=== PATIENT | male | born 1995 | race Hispanic/Latino ===

== ENCOUNTER 2021-02-18 10:28 | Emergency (ER) | payer OTHER ==
[~2021-02-18] VITALS: Ht 180.3 cm; Wt 158.8 kg
[2021-02-18 10:29] VITALS: BP 160/102
== END 2021-02-18 14:00 | disposition home or self-care (01) ==
LOC: EDH 10:28
DX: T16.2XXA Foreign body in left ear, initial encounter (principal); X58.XXXA Exposure to other specified factors, initial encounter; Y93.89 Activity, other specified; Y92.89 Other specified places as the place of occurrence of the external cause; Y99.8 Other external cause status
CPT/HCPCS: 69200

== ENCOUNTER 2021-04-12 05:13 | Emergency (ER) | payer SELFPAY ==
[~2021-04-12] VITALS: Ht 180.3 cm; Wt 171.0 kg
[2021-04-12 06:20] LABS: AMPHET/METH SCREEN,URINE NEGATIVE (NEGATIVE); BARBITURATE SCREEN, URINE NEGATIVE (NEGATIVE); BENZODIAZEPINES SCREEN,URINE NEGATIVE (NEGATIVE); CANNABINOID SCREEN,URINE POSITIVE (NEGATIVE); COCAINE SCREEN,URINE NEGATIVE (NEGATIVE); OPIATE SCREEN,URINE NEGATIVE (NEGATIVE); PHENCYCLIDINE SCREEN,URINE NEGATIVE (NEGATIVE)
[2021-04-12 06:24] LABS: APPEARANCE,URINE Clear (CLEAR); BILIRUBIN,URINE Negative (NEGATIVE); COLOR,URINE Yellow (YELLOW); GLUCOSE, URINE (UA) Negative (NEGATIVE); KETONES,URINE Negative (NEGATIVE); LEUKOCYTE ESTERASE ,URINE Trace (NEGATIVE); NITRATE,URINE Negative (NEGATIVE); OCCULT BLOOD,URINE Negative (NEGATIVE); PROTEIN,URINE Negative (NEGATIVE)
[2021-04-12 07:40] VITALS: BP 149/84
[2021-04-12 07:59] LABS: BASOPHILS % (AUTO) 0.4 % (0.0-5.0); EOSINOPHILS % (AUTO) 2.4 % (0.0-8.0); LYMPHOCYTES % (AUTO) 41.7 % (21.0-51.0); MEAN CORPUSCULAR HEMOGLOBIN 28.1 pg (27.0-33.0); MEAN CORPUSCULAR VOLUME 87.9 fL (79-99); MONOCYTES % (AUTO) 6.1 % (3.0-13.0); NEUTROPHILS % (AUTO) 49.1 % (40.0-77.0); PLATELET COUNT (AUTO) 166 K/uL (130-400); RED BLOOD CELL COUNT(AUTO) 5.12 MIL/uL (4.50-6.20); RED CELL DISTRIBUTION WIDTH 13.1 % (11.0-15.5); WHITE BLOOD COUNT (AUTO) 12.7 K/uL (4.8-10.8)
[2021-04-12 08:03] LABS: BACTERIA,URINE Rare /HPF (None Seen); RBC,URINE 0-1 /HPF (0-1); SQUAMOUS EPITHELIAL CELL,UR Rare /HPF (0-2); WBC,URINE 0-1 /HPF (0-1)
[2021-04-12 08:50] LABS: ALBUMIN 4.1 g/dL (3.5-5.0); BILIRUBIN,TOTAL 0.4 mg/dL (0.2-1.0); POTASSIUM 4.3 mmol/L (3.5-5.1); TOTAL PROTEIN, SERUM 8.3 g/dL (6.0-8.3)
[2021-04-12] MEDS ORDERED: MELO7.5T12 PO (09:16)
[2021-04-12] MEDS ORDERED: CYCL-309 PO (09:16)
== END 2021-04-12 10:15 | disposition home or self-care (01) ==
LOC: EDH 05:13
DX: R07.89 Other chest pain (principal); Z20.822 Contact with and (suspected) exposure to COVID-19; F17.200 Nicotine dependence, unspecified, uncomplicated; Z79.1 Long term (current) use of non-steroidal anti-inflammatories (NSAID)
CPT/HCPCS: 36415; 71045; 80053; 80305; 81001; 84484; 85025; 87635; 87804 ×2; 93005; 99285; C9803

== ENCOUNTER 2024-05-17 13:58 | Emergency (ER) | payer OTHER ==
[~2024-05-17] VITALS: Ht 180.3 cm; Wt 174.6 kg
[~2024-05-17 13:58] MED LIST: CYCL-309 PO; MELO7.5T12 PO
[2024-05-17 14:33] VITALS: BP 165/111; PULSE 88; RESP 20; TEMP 99; O2SAT 97
--- NOTE | 2024-05-17 15:13 | ERN ---
ED Note History of Present Illness Stated Complaint: EAR INFECTION Chief Complaint: Earache Time Seen by MD: 14:04 Dictation: 29-year-old male presents to the ED for evaluation of right ear pain onset four days ago. Patient reports discharge, but denies any other associated symptoms at this time. Patient states he was placing numbing drops in his ear and believes it worsened his symptoms. Allergies: Coded Allergies: No Known Allergies (Unverified Allergy, Unknown, 08/02/18) Home Meds Active Scripts Amoxicillin/Potassium Clav (Amox Tr-K Clv 875-125 mg Tab) 875 Mg-125 Mg Tablet, 1 TAB PO BID for 10 Days, #20 TAB 0 Refills Prov:STEVAN GILL MD 05/17/24 Cyclobenzaprine HCl (Cyclobenzaprine HCl) 10 Mg Tablet, 10 MG PO TIDP, #20 TAB 0 Refills Prov:CLAUDINE RAMOS MD 04/12/21 Meloxicam (Mobic) 7.5 Mg Tablet, 7.5 MG PO DAILY, #10 TAB 0 Refills Prov:CLAUDINE RAMOS MD 04/12/21 Past Medical History Past Medical History: No Pertinent History Surgical History: None Family History: DM Social History: Smokers Review of System Dictation Constitutional: Negative for fever,chills, and weight loss Eyes: Negative for injury, pain,redness, and discharge ENT: Positive for ear pain, discharge negative for injury Cardiovascular: Negative for chest pain, palpitations, and edema Respiratory: Negative for shortness of breath, cough, and wheezing, Abdomen/GI: Negative for abdominal pain, nausea, vomiting, diarrhea, and constipation Back: Negative for injury and pain : Negative for injury, bleeding and discharge MS/Extremity: Negative for injury and deformity Skin: Negative for rash, and discoloration Neuro: Negative for headache, weakness, numbness, tingling, and seizure Psych: Negative for suicide ideation, homicidal ideation, and hallucinations Initial Vital Sign VS Vital Signs Date Time Temp Pulse Resp B/P (MAP) Pulse Ox O2 Delivery O2 Flow Rate FiO2 05/17/24 14:26 99.0 88 20 165/111 97 Room Air 0 05/17/24 14:33 21 Physical Exam Dictation General: awake, alert, NAD Head/Face: Normocephalic, atraumatic Eyes: PERRL, EOMI, vision at baseline ENT: oral cavity clear, right ruptured TM, discharge Neck: Trachea midline, supple, no nuchal rigidity Cardiovascular: RRR, normal S1/S2, No MRGs, no JVD Respiratory: CTAB, no respiratory distress, No rales or wheezes Abdomen: Soft, non-tender, non-distended, normal bowel sounds, no guarding or rebound. Skin: Warm, dry, normal turgor, no rash MS/Extremity: Pulses equal, no cyanosis, neurovascular intact, FROM Neuro: COAx4, GCS 15, strength 5/5, CN 2-12 intact, normal cerebellar exam, normal gait, Psych: Normal behavior, mood, and affect normal ED Course ED Course Orders Procedure Category Date Status Time Ceftriaxone 1g Vial PHA 05/17/24 Complete (Rocephine 1g Inj) 16:00 Current Medications Medications (Trade) Dose Ordered Sig/Vick Route PRN Reason Start Time Stop Time Status Last Admin Dose Admin Ceftriaxone Sodium (ROCEphine 1G INJ) 1 gm ONCE ONCE IM 05/17/24 16:00 05/17/24 16:01 DC 05/17/24 16:05 Vital Signs Date Time Temp Pulse Resp B/P (MAP) Pulse Ox O2 Delivery O2 Flow Rate FiO2 05/17/24 14:33 99.0 88 20 165/111 97 Room Air* 0 21 05/17/24 14:26 99.0 88 20 165/111 97 Room Air 0 Medical Decision Making MDM MDM: Differential diagnosis: Ear pain, OM, OE Risk of complication and/or morbidity or mortality of patient management: None Medications-Per medication reconciliation Need for hospitalization: Patient does not meet criteria for hospitalization. Need for emergency major/minor surgery: No There are no social concerns with this patient. Prescription drug management Prescriptions will include symptomatic care I independently interpreted the test that were performed, results were reviewed by me and considered findings on radiology if ordered. DX & DISP Disposition: Discharge Departure Impression: Primary Impression: Right otitis media Condition: Stable Scripts Amoxicillin/Potassium Clav (Amox Tr-K Clv 875-125 mg Tab) 875 Mg-125 Mg Tablet 1 TAB PO BID for 10 Days, #20 TAB 0 Refills Prov: STEVAN GILL MD 05/17/24 Referrals: NONE (PCP) TSEVAN GILL MD May 17, 2024 15:13
[2024-05-17] MEDS ORDERED: AMOX1TAB16 PO (15:57)
[2024-05-17] MEDS: cefTRIAXone 1G VIAL IM ONE (16:05)
== END 2024-05-17 17:39 | disposition home or self-care (01) ==
LOC: EDH 13:58
DX: H66.91 Otitis media, unspecified, right ear (principal); F17.200 Nicotine dependence, unspecified, uncomplicated; Z79.899 Other long term (current) drug therapy; Z79.1 Long term (current) use of non-steroidal anti-inflammatories (NSAID)
CPT/HCPCS: 99283; 96372; J0696